=== PATIENT | male | born 1985 | race Hispanic/Latino ===

== ENCOUNTER 2017-03-31 03:36 | Observation (INO) | payer BC ==
[2017-03-31 03:37] VITALS: BMI 28.5
[2017-03-31] MEDS ORDERED: Sterile Water 10 ML IV ONE (03:48)
[2017-03-31] MEDS ORDERED: DiphenhydrAMINE 50 mg/ml Inj IVP STA (04:02)
--- NOTE | 2017-03-31 04:13 | ED PDOC ---
HPI: Psych/Substance Abuse Time Seen by Provider: 03/31/17 03:53 Chief Complaint (Nursing): Substance Abuse Chief Complaint (Provider): Substance Abuse ED Caveat: Altered Mental Status, Intoxicated History Per: EMS History/Exam Limitations: clinical condition (Substance Abuse) Onset/Duration Of Symptoms: Hrs Current Symptoms Are (Timing): Still Present Modifying Factor(s): Other (PCP) Involuntary Hold By: Local Law Enforcement Additional Complaint(s): 31 y/o male patient presenting to the ED with substance abuse. Patient was brought in by EMS and police officers after being found in his vehicle with multiple drugs including PCP. No complaints or past medical history is able to be reviewed due to intoxication caveat. Patient was thrashing, combative and required chemical and physical restraints. Past Medical History Reviewed: Unable To Obtain Vital Signs: Last Vital Signs Temp Pulse 131 H 03/31/17 03:57 Resp 22 03/31/17 03:57 BP 184/61 H 03/31/17 03:57 Pulse Ox 95 03/31/17 03:57 - Medical History PMH: Seizures - Family History Family History: States: Unknown Family Hx - Immunization History Hx Tetanus Toxoid Vaccination: Yes Hx Influenza Vaccination: Yes Hx Pneumococcal Vaccination: No - Home Medications Home Medications: Ambulatory Orders Medication Instructions Recorded Cephalexin [Keflex] 500 mg PO QID #20 cap 04/03/14 Levetiracetam [Keppra] 750 mg PO BID 04/03/14 Levetiracetam [Keppra] 1 tab PO BID 10/27/16 - Allergies Allergies/Adverse Reactions: Allergies Allergy/AdvReac Type Severity Reaction Status Date / Time No Known Allergies Allergy Verified 05/26/16 21:51 Review of Systems Review Of Systems: ROS cannot be obtained secondary to pt's inabilty to answer questions. Neurological: Positive for: Altered Mental Status Physical Exam - Reviewed Nursing Documentation Reviewed: Yes Vital Signs Reviewed: Yes - Physical Exam Appears: Positive for: Non-toxic, Uncomfortable Head Exam: Positive for: ATRAUMATIC, NORMAL INSPECTION, NORMOCEPHALIC Skin: Positive for: Normal Color, Warm, Dry Eye Exam: Positive for: Other ((+)2-3MM and reactive) Neck: Positive for: Normal, Painless ROM, Supple Respiratory: Positive for: Normal Breath Sounds. Negative for: Wheezing, Respiratory Distress Extremity: Positive for: Normal ROM Neurologic/Psych: Positive for: Alert, Mood/Affect ((+)Screaming), Other ((+) Uncooperative). Negative for: Oriented, Motor/Sensory Deficits - Laboratory Results Result Diagrams: 03/31/17 04:00 03/31/17 04:00 - ECG O2 Sat by Pulse Oximetry: 95 (RA) Pulse Ox Interpretation: Normal Medical Decision Making Medical Decision Making: Time: 040 Initial impression: Drug Abuse Initial plan: --EKG --ACETAMINOPHEN --ALCOHOL SERUM --BMP --DRUG SCREEN, URINE --SALICYLATE --EKG-ED --CBC --DIPHENHYDRAMINE 50MG IVP --LORAZEPAM 2MG IVP --ELECTRICAL INTERN --Urine Straight Catheterization --ADMIT 0700: Giving Sign Out: Patient signed out to Dr. Spencer at this time. Pending Sobriety. Scribe Attestation: Documented by Jodie Guido, acting as a scribe for Jeff Rascon MD. Scribe Attestation: All medical record entries made by the Scribe were at my direction and personally dictated by me. I have reviewed the chart and agree that the record accurately reflects my personal performance of the history, physical exam, medical decision making, and the department course for this patient. I have also personally directed, reviewed, and agree with the discharge instructions and disposition. ED OBSERVATION Date of observation admission: 03/31/17 Time of observation admission: 03:45 - Observation admission statement Patient is being placed in observation because:: Substance Abuse and restrained due to combativeness and aggression - Goals of Observation Goals of observation are:: Substance Abuse Sobriety - Progress Note Progress Note: 03/31/17 05:15 Pending Sobriety 03/31/17 06:45 Pending Sobriety Disposition - Clinical Impression Clinical Impression: Polysubstance abuse - Disposition Disposition: Transfer of Care Disposition Time: 07:00 Condition: STABLE Patient Signed Over To: Sergio Spencer Handoff Comments: pending sobriety
[2017-03-31 04:14] LABS: BASO # 0.1 K/uL (0.0-0.2); BASO % 0.7 % (0.0-2.0); EOS # 0.3 K/uL (0.0-0.7); EOS % 2.9 % (0.0-4.0); HEMATOCRIT 49.4 % (35.0-51.0); LYMPH # 2.9 K/uL (1.0-4.3); LYMPH % 28.2 % (20.0-40.0); MEAN CORPUSCULAR HEMOGLOBIN 31.5 pg (27.0-31.0); MEAN CORPUSCULAR HGB CONC 34.8 g/dL (33.0-37.0); MEAN PLATELET VOLUME 7.1 fl (7.2-11.7); MONO # 0.9 K/uL (0.0-0.8); MONO % 9.1 % (0.0-10.0); NEUT # 6.1 K/uL (1.8-7.0); NEUT % 59.1 % (50.0-75.0); NRBC % 0.1 % (0.0-0.0); RED CELL DISTRIBUTION WIDTH 13.3 % (11.5-14.5); WHITE BLOOD COUNT 10.3 K/uL (4.8-10.8)
[2017-03-31 04:17] LABS: MEAN CELL VOLUME 90.4 fl (80.0-94.0)
[2017-03-31 04:24] LABS: ALCOHOL SERUM < 10 mg/dl (0-10); BLOOD UREA NITROGEN 10 mg/dl (9-20); CALCIUM 9.5 mg/dL (8.4-10.2); CARBON DIOXIDE 15 mmol/L (22-30); CHLORIDE 106 mmol/L (98-107); GFR AFRICAN-AMERICAN > 60; GLUCOSE,RANDOM 127 mg/dL (75-110); POTASSIUM 3.7 MMOL/L (3.6-5.0); SODIUM 142 mmol/l (132-148)
[2017-03-31 05:12] LABS: RBC URINE 1 /hpf (0-3); URINE BILIRUBIN NEGATIVE (NEGATIVE); URINE BLOOD NEGATIVE (NEGATIVE); URINE COLOR YELLOW (YELLOW); URINE GLUCOSE (UA) NEG (Normal); URINE KETONE NEGATIVE (NEGATIVE); URINE LEUKOCYTE ESTERASE NEG Leu/uL (Negative); URINE PROTEIN NEGATIVE (NEGATIVE); URINE UROBILINOGEN 0.2-1.0 mg/dL (0.2-1.0); WBC URINE < 1 /hpf (0-5)
--- NOTE | 2017-03-31 07:10 | ED PDOC ---
- Laboratory Results Result Diagrams: 03/31/17 04:00 03/31/17 04:00 - ECG O2 Sat by Pulse Oximetry: 95 (RA) - Progress Re-evaluation Time: 08:18 Condition: Improved (Awake alert no focal neuro deficits) Disposition - Clinical Impression Clinical Impression: Polysubstance abuse - POA Present On Arrival: None - Disposition Disposition: Discharged/Transfer to Law Enforcement Disposition Time: 08:19 Condition: FAIR
[2017-03-31 07:33] VITALS: RESP 18
[2017-03-31 08:37] VITALS: BP 128/78; PULSE 78; TEMP 97.6; O2SAT 98
--- NOTE | 2017-03-31 10:19 | CARD ---
APPROVED REPORT EKG Measurement Heart [id number] <Conclusion> Normal sinus rhythm Possible Left atrial enlargement Borderline ECG
== END 2017-03-31 08:42 ==
LOC: H.ER 03:36 → H.EROBSV 04:01
PROVIDERS: ADMIT Emergency Medicine; ATTEND Emergency Medicine
DX: F19.10 Other psychoactive substance abuse, uncomplicated (principal); Z78.1 Physical restraint status; Z79.899 Other long term (current) drug therapy; G40.909 Epilepsy, unspecified, not intractable, without status epilepticus; R56.9 Unspecified convulsions; R41.82 Altered mental status, unspecified
CPT/HCPCS: 80048; 81003; 85025; 93005; 96372; 96374; 96375; 99284; G0378; G0480; J1200; J1630; J2060

== ENCOUNTER 2018-06-13 02:06 | Emergency (ER) | payer BC ==
[2018-06-13 02:06] VITALS: BMI 28.5
[2018-06-13 02:19] VITALS: RESP 17; TEMP 98.7; O2SAT 98
--- NOTE | 2018-06-13 02:47 | ED PDOC ---
HPI: General Adult Time Seen by Provider: 06/13/18 02:16 Chief Complaint (Nursing): Medical Clearance Chief Complaint (Provider): medical and psych clearance History Per: Patient History/Exam Limitations: no limitations Onset/Duration Of Symptoms: Hrs (today) Current Symptoms Are (Timing): Still Present Additional Complaint(s): Que Holland is a 32 year old male, with a past medical history of seizure disorder, who was brought to the emergency department by [facility] upon being arrested for medical and psychiatric clearance. Patient denies any psychiatric or medical complaints but reports he is due for his evening dose of 750mg of Keppra. Patient has been seen in this facility for intoxication and PCP abuse but denies any drug use currently. He denies any suicidal or homicidal ideation. No further medical complaints. PMD: None provided. Past Medical History Reviewed: Historical Data, Nursing Documentation, Vital Signs Vital Signs: Last Vital Signs Temp 98.7 F 06/13/18 02:11 Pulse 90 06/13/18 02:11 Resp 17 06/13/18 02:11 BP 150/100 H 06/13/18 02:11 Pulse Ox 98 06/13/18 02:11 - Medical History PMH: No Chronic Diseases, Seizures - Surgical History Surgical History: No Surg Hx - Family History Family History: States: Unknown Family Hx - Immunization History Hx Tetanus Toxoid Vaccination: Yes Hx Influenza Vaccination: Yes Hx Pneumococcal Vaccination: No - Home Medications Home Medications: Ambulatory Orders Medication Instructions Recorded Cephalexin [Keflex] 500 mg PO QID #20 cap 04/03/14 Levetiracetam [Keppra] 750 mg PO BID 04/03/14 Levetiracetam [Keppra] 1 tab PO BID 10/27/16 - Allergies Allergies/Adverse Reactions: Allergies Allergy/AdvReac Type Severity Reaction Status Date / Time No Known Allergies Allergy Verified 05/26/16 21:51 Review of Systems ROS Statement: Except As Marked, All Systems Reviewed And Found Negative Psych: Negative for: Suicidal ideation (or homicidal ideation) Physical Exam - Reviewed Nursing Documentation Reviewed: Yes Vital Signs Reviewed: Yes - Physical Exam Appears: Positive for: No Acute Distress Head Exam: Positive for: ATRAUMATIC, NORMAL INSPECTION, NORMOCEPHALIC Skin: Positive for: Normal Color, Warm, Dry Eye Exam: Positive for: Normal appearance, EOMI, PERRL Neck: Positive for: Painless ROM Cardiovascular/Chest: Positive for: Regular Rate, Rhythm. Negative for: Murmur Respiratory: Positive for: Normal Breath Sounds. Negative for: Respiratory Distress Gastrointestinal/Abdominal: Positive for: Normal Exam, Soft. Negative for: Tenderness Back: Positive for: Normal Inspection. Negative for: Vertebral Tenderness Extremity: Positive for: Normal ROM (upper and lower extremities). Negative for: Deformity, Swelling Neurologic/Psych: Positive for: Alert, Oriented, Gait (steady) - ECG O2 Sat by Pulse Oximetry: 98 (RA) Pulse Ox Interpretation: Normal Medical Decision Making Medical Decision Making: Time: 02:16 Initial Impression: 32 y/o male for medical and psychiatric clearance prior to incarceration. Initial Plan: --Crisis evaluation as ordered --Keppra 750 mg PO --Reevaluation ----- Scribe Attestation: Documented by Dallas Jose, acting as a scribe for Byron Brar MD. Provider Scribe Attestation: All medical record entries made by the Scribe were at my direction and personally dictated by me. I have reviewed the chart and agree that the record accurately reflects my personal performance of the history, physical exam, medical decision making, and the department course for this patient. I have also personally directed, reviewed, and agree with the discharge instructions and disposition. Disposition - Clinical Impression Clinical Impression: Adjustment disorder - Disposition Disposition: Discharged/Transfer to Law Enforcement Disposition Time: 04:00 Condition: STABLE Additional Instructions: Patient is medically and psychiatrically stable for incarceration Instructions: Adjustment Disorder, General (DC) Forms: [employer] (Australian)
[2018-06-13 03:16] VITALS: BP 146/87; PULSE 72
== END 2018-06-13 02:50 ==
LOC: H.ER 02:06
DX: F43.20 Adjustment disorder, unspecified (principal); G40.909 Epilepsy, unspecified, not intractable, without status epilepticus

== ENCOUNTER 2018-10-18 20:18 | Emergency (ER) | payer BC ==
--- NOTE | 2018-10-18 20:45 | ED PDOC ---
HPI: Psych/Substance Abuse Time Seen by Provider: 10/18/18 20:31 Chief Complaint (Nursing): Substance Abuse Chief Complaint (Provider): Substance Abuse ED Caveat: Uncooperative History Per: EMS, Other ([place] [employer]) History/Exam Limitations: clinical condition Current Symptoms Are (Timing): Still Present Additional Complaint(s): 32 year old male is brought to ED via EMS with [place] [employer] for an evaluation of violent behavior and agitation, possibly due to PCP ingestion. Unable to obtain further Hx secondary to current condition. PCP: none provided Past Medical History Reviewed: Nursing Documentation, Vital Signs - Medical History PMH: Seizures Denies: Diabetes, Hepatitis, HIV, HTN, Sexually Transmitted Disease - Family History Family History: States: Unknown Family Hx - Immunization History Hx Tetanus Toxoid Vaccination: Yes Hx Influenza Vaccination: Yes Hx Pneumococcal Vaccination: No - Home Medications Home Medications: Ambulatory Orders Medication Instructions Recorded Cephalexin [Keflex] 500 mg PO QID #20 cap 04/03/14 Levetiracetam [Keppra] 750 mg PO BID 04/03/14 Levetiracetam [Keppra] 1 tab PO BID 10/27/16 - Allergies Allergies/Adverse Reactions: Allergies Allergy/AdvReac Type Severity Reaction Status Date / Time No Known Allergies Allergy Verified 10/18/18 20:35 Review of Systems Review Of Systems: ROS cannot be obtained secondary to pt's inabilty to answer questions. Physical Exam - Reviewed Nursing Documentation Reviewed: Yes Vital Signs Reviewed: Yes - Physical Exam Head Exam: Positive for: ATRAUMATIC, NORMAL INSPECTION, NORMOCEPHALIC Eye Exam: Positive for: PERRL, Nystagmus (horizontal bilaterally) Cardiovascular/Chest: Positive for: Regular Rate, Rhythm Respiratory: Positive for: Normal Breath Sounds. Negative for: Respiratory Distress Extremity: Positive for: Normal ROM (upper/lower) Neurologic/Psych: Positive for: Alert (x0), Oriented (x0), Other (awake). Negative for: Motor/Sensory Deficits - Laboratory Results Result Diagrams: 10/18/18 21:00 10/18/18 21:00 Medical Decision Making Medical Decision Making: Time: 2030 Initial Plan: Patient placed on 4-points restraints secondary to violent and agitated behavior. Medicated with Ativan 2mg IM and Haldol 5mg IM. Labs and EKG additionally ordered. Scribe Attestation: Documented by Henrietta Wagoner, acting as a scribe for Sergio Spencer MD. Provider Scribe Attestation: All medical record entries made by the Scribe were at my direction and personally dictated by me. I have reviewed the chart and agree that the record accurately reflects my personal performance of the history, physical exam, medical decision making, and the department course for this patient. I have also personally directed, reviewed, and agree with the discharge instructions and disposition. Disposition - Clinical Impression Clinical Impression: Substance abuse - Patient ED Disposition Is Patient to be Admitted: Transfer of Care - Disposition Disposition: Transfer of Care Disposition Time: 23:00 Condition: FAIR Forms: [employer] (Khmer) Patient Signed Over To: Jeff Rascon
[2018-10-18 21:01] VITALS: TEMP 98.4
[2018-10-18 21:24] LABS: ALB/GLOB RATIO 1.5 (1.0-2.1); ALBUMIN 4.5 g/dL (3.5-5.0); ALT/SGPT 22 U/L (21-72); AST/SGOT 21 U/L (17-59); BASO % 0.3 % (0.0-2.0); BLOOD UREA NITROGEN 16 mg/dl (9-20); CALCIUM 8.8 mg/dL (8.4-10.2); EOS # 0.5 K/uL (0.0-0.7); EOS % 8.6 % (0.0-4.0); GFR NON-AFRICAN AMERICAN > 60; HEMOGLOBIN 15.3 g/dL (12.0-18.0); LYMPH # 1.4 K/uL (1.0-4.3); LYMPH % 24.9 % (20.0-40.0); MEAN CORPUSCULAR HEMOGLOBIN 29.8 pg (27.0-31.0); MEAN CORPUSCULAR HGB CONC 33.5 g/dL (33.0-37.0); MEAN PLATELET VOLUME 7.3 fl (7.2-11.7); MONO # 0.5 K/uL (0.0-0.8); MONO % 8.3 % (0.0-10.0); NEUT # 3.3 K/uL (1.8-7.0); NEUT % 57.9 % (50.0-75.0); NRBC % 0.1 % (0.0-0.0); RBC 5.12 Mil/uL (4.40-5.90); RED CELL DISTRIBUTION WIDTH 13.6 % (11.5-14.5); WHITE BLOOD COUNT 5.7 K/uL (4.8-10.8)
[2018-10-18 23:21] VITALS: RESP 16
--- NOTE | 2018-10-18 23:54 | ED PDOC ---
- Laboratory Results Result Diagrams: 10/18/18 21:00 10/18/18 21:00 Lab Results: Total Bilirubin 0.2 mg/dl (0.2-1.3) 10/18/18 21:00 AST 21 U/L (17-59) 10/18/18 21:00 ALT 22 U/L (21-72) 10/18/18 21:00 Alkaline Phosphatase 83 U/L (38-126) 10/18/18 21:00 Total Protein 7.5 G/DL (6.3-8.2) 10/18/18 21:00 Albumin 4.5 g/dL (3.5-5.0) 10/18/18 21:00 Globulin 3.0 gm/dL (2.2-3.9) 10/18/18 21:00 Albumin/Globulin Ratio 1.5 (1.0-2.1) 10/18/18 21:00 - ECG O2 Sat by Pulse Oximetry: 95 (RA) Pulse Ox Interpretation: Normal Medical Decision Making Medical Decision Making: Time: 2300 -- Patient endorsed to me by Dr. Spencer, pending sobriety and re-evaluation. Time: 500 --Patient is awake alert, oriented, steady gait --Contacted [place] [employer] (Elli Mclean ID [id number]) to assess for any further intervention (i.e. fingerprinting), they stated that there is no further invention necessary and patient is free to go home from their standpoint Scribe Attestation: Documented by Wesley Solares, acting as a scribe for Jeff Rascon MD. Provider Scribe Attestation: All medical record entries made by the Scribe were at my direction and personally dictated by me. I have reviewed the chart and agree that the record accurately reflects my personal performance of the history, physical exam, medical decision making, and the department course for this patient. I have also personally directed, reviewed, and agree with the discharge instructions and disposition. Disposition - Clinical Impression Clinical Impression: Substance abuse - POA Present On Arrival: None - Disposition Disposition: Routine/Home Disposition Time: 05:14 Condition: FAIR Forms: [employer] (Korean)
[2018-10-19 04:50] VITALS: BP 115/68; PULSE 73
[2018-10-19 05:09] VITALS: O2SAT 95
--- NOTE | 2018-10-20 01:21 | CARD ---
APPROVED REPORT Date of service: 10/18/2018 EKG Measurement Heart [id number] <Conclusion> Normal sinus rhythm Normal Electrocardiogram
== END 2018-10-19 05:20 | disposition home or self-care (01) ==
LOC: H.ER 20:18
DX: F19.10 Other psychoactive substance abuse, uncomplicated (principal)
CPT/HCPCS: 80053; 82948; 85025; 93005; 96372; 99285; G0480; J1630; J2060

== ENCOUNTER 2018-11-02 21:19 | Emergency (ER) | payer BC ==
[2018-11-02 21:22] VITALS: BP 159/103; PULSE 111; RESP 18; TEMP 98.5; O2SAT 99
--- NOTE | 2018-11-02 21:36 | ED PDOC ---
HPI: General Adult Time Seen by Provider: 11/02/18 21:30 Chief Complaint (Nursing): Alcohol Ingestion Chief Complaint (Provider): Medical Clearance for Incarceration History Per: Patient Additional Complaint(s): Pt presents with the [facility] incarcerated for clearance both medically and psychologically. The patient denies any acute or chronic illness or injury as well as any psycnological needs. Past Medical History Reviewed: Historical Data, Nursing Documentation, Vital Signs Vital Signs: Last Vital Signs Temp 98.5 F 11/02/18 21:21 Pulse 111 H 11/02/18 21:21 Resp 18 11/02/18 21:21 BP 159/103 H 11/02/18 21:21 Pulse Ox 99 11/02/18 21:21 - Medical History PMH: Seizures Denies: Diabetes, Hepatitis, HIV, HTN, Sexually Transmitted Disease - Family History Family History: States: Unknown Family Hx - Immunization History Hx Tetanus Toxoid Vaccination: Yes Hx Influenza Vaccination: Yes Hx Pneumococcal Vaccination: No - Home Medications Home Medications: Ambulatory Orders Medication Instructions Recorded Cephalexin [Keflex] 500 mg PO QID #20 cap 04/03/14 Levetiracetam [Keppra] 750 mg PO BID 04/03/14 Levetiracetam [Keppra] 1 tab PO BID 10/27/16 - Allergies Allergies/Adverse Reactions: Allergies Allergy/AdvReac Type Severity Reaction Status Date / Time No Known Allergies Allergy Verified 11/02/18 21:19 Review of Systems ROS Statement: Except As Marked, All Systems Reviewed And Found Negative (Pt denies all ROS) Physical Exam - Reviewed Nursing Documentation Reviewed: Yes Vital Signs Reviewed: Yes - Physical Exam Appears: Positive for: Well, Non-toxic, No Acute Distress. Negative for: Uncomfortable Skin: Positive for: Normal Color, Warm, Dry. Negative for: Diaphoresis, Pallor, Rash Eye Exam: Positive for: Normal appearance, PERRL. Negative for: Nystagmus, Periorbital swelling, Periorbital tenderness Neck: Positive for: Normal, Painless ROM, Supple. Negative for: Decreased ROM, Pain On Movement Of Neck Cardiovascular/Chest: Positive for: Regular Rate, Rhythm Respiratory: Positive for: Normal Breath Sounds Pulses-Carotid (L): 2+ Pulses-Carotid (R): 2+ Pulses-Radial (L): 2+ Pulses-Radial (R): 2+ Gastrointestinal/Abdominal: Positive for: Normal Exam - ECG O2 Sat by Pulse Oximetry: 99 Medical Decision Making Medical Decision Making: I: medical and psycholgical clearance P: tox and BAL crisis order for clearance 2229- Pt is physcially cleared for incarceration BAL <10 Crisis Evaluation clears pt for incarceration psychologically The pt is cleared both phys and psych for incarceration and will be discharged to D Disposition - Clinical Impression Clinical Impression: Medical clearance for incarceration, Adjustment disorder - Patient ED Disposition Is Patient to be Admitted: No Counseled Patient/Family Regarding: Diagnosis - Disposition Disposition: Discharged/Transfer to Law Enforcement Disposition Time: 23:46 Condition: STABLE Additional Instructions: The patient is cleared and stable both physically and psychologically for incarceration Forms: [employer] (Jordanian)
[2018-11-02 23:58] LABS: BARBITURATES, UR NEGATIVE (NEGATIVE); BENZODIAZEPINES, UR NEGATIVE (NEGATIVE); OPIATES, UR NEGATIVE (NEGATIVE); PHENCYCLIDINE, UR POSITIVE (NEGATIVE)
== END 2018-11-02 23:58 ==
LOC: H.ER 21:19
DX: F43.20 Adjustment disorder, unspecified
CPT/HCPCS: 82948; 99284; G0480